=== PATIENT | female | born 1975 | race Caucasian/White ===

== ENCOUNTER 2016-12-17 15:11 | Day surgery (SDC) | payer MEDICARE, OTHER ==
--- NOTE | ~2016-12-17 | OP ---
Record Of Operation [facility] [address]. [address] NAME: FREDRICK HUFF : 75 STATUS : [facility]#: [id number] AGE: 41 ADM/REG DATE : 12/17/16 MR#: [id number] REPORT SERV DATE: 12/17/16 DICTATED BY: ELIAS BLACKWELL DATE: 12/17/16 REPORT STATUS : Draft TRANSCRIBED BY: MODL DATE: 12/17/16 DATE OF PROCEDURE: 12/17/2016 PREOPERATIVE DIAGNOSES: 1. Recurrent right renal calculus. 2. Urinary tract infection. POSTOPERATIVE DIAGNOSES: 1. Recurrent right renal calculus. 2. Urinary tract infection. PROCEDURE PERFORMED: Cystoscopy, right retrograde pyelogram, right ureteral stent placement. SURGEON: Elias Blackwell M.D. ANESTHESIA: General. ESTIMATED BLOOD LOSS: None. INDICATIONS: This is a 41-year-old white female with a history of a right staghorn stone who underwent a PCNL procedure about four or five months ago. She presented to the office today complaining of flank pain, nausea, vomiting, etc., and CT demonstrated significant regrowth of stone material in the right kidney and at least part of in a staghorn configuration. Also, her urine appears infected. We have initiated antibiotic treatment and are planning on ureteral stenting. Risks of infection, bleeding, failure, and need for further surgery for the stones have been discussed. PROCEDURE IN DETAIL: The patient was taken to the operating room and underwent a general anesthetic. She was placed in a lithotomy position on the table, and her external genitalia were sterilely prepped and draped. The 22-Kazakh cystoscope sheath with 30-degree lens was inserted under direct vision per urethra with the aid of the video monitor. There was a marked cystocele present. The bladder mucosa looked normal. Single orifices were seen bilaterally. There were no stones in the bladder. There were no mass lesions. There were no significant inflammatory changes. A right retrograde pyelogram was obtained showing a normal caliber ureter and perhaps a mildly dilated right collecting system if at all. It was difficult to see the known stone in her kidney. A 0.038 guidewire was advanced up into the kidney and a 6-Kazakh x 28 cm Contour stent was advanced over the guidewire such that the proximal end of the stent was observed to coil in the pelvis of the kidney under fluoroscopic guidance and the distal end of the stent was visually observed to coil in the bladder following removal of the guidewire. The bladder was then drained. All endoscopic apparatus was removed. The patient was taken to recovery in stable condition. [facility]ESHAWN/TAB Record Of [address] [place] [address] NAME: FREDRICK HUFF : 75 STATUS : [facility] PAT#: [id number] AGE: 41 ADM/REG DATE : 12/17/16 MR#: [id number] REPORT SERV DATE: 12/17/16 DICTATED BY: ELIAS BLACKWELL DATE: 12/17/16 REPORT STATUS : Draft TRANSCRIBED BY: TAB DATE: 12/17/16 Elias Blackwell M.D. / [id number] CC: Nayana Madison M.D.
[~2016-12-17 15:11] MED LIST: ABILIFY10 PO; BUSPAR10 PO; CIP5 PO; DETROL2 PO; DITRO5 PO; ENDOCET1 TA1 PO; ENDOCET1 TAB PO; PRILO PO; PYR200 PO; VIB50 PO
[2016-12-17 15:53] LABS: BASOPHILS 0.2 %; BASOPHILS ABSOLUTE 0.02 10/3/uL (0.0-0.16); EOSINOPHILS 1.6 %; EOSINOPHILS ABSOLUTE 0.15 10/3/uL (0.0-0.53); HEMATOCRIT 43.1 % (36.0-48.0); HEMOGLOBIN 15.2 g/dL (12.0-16.0); IMMATURE GRANULOCYTES 0.2 %; IMMATURE GRANULOCYTES ABSOLUTE 0.02 10/3/uL (0.0-0.11); LYMPHOCYTES 39.2 %; MANUAL DIFF NO %; MEAN CORPUS HGB CONC 35.3 g/dL (32.0-36.0); MEAN CORPUSCULAR HEMOGLOB 32.6 pg (26.0-34.0); MEAN CORPUSCULAR VOLUME 92.5 fL (80-100); MEAN PLATELET VOLUME 10.7 fL (9.2-13.0); MONOCYTES 7.2 %; MONOCYTES ABSOLUTE 0.68 10/3/uL (0.21-1.20); NEUTROPHILS 51.6 %; NEUTROPHILS ABSOLUTE 4.88 10/3/uL (2.02-8.40); PLATELET COUNT 262 10/3/uL (150-400); RBC DISTRIBUTION WIDTH 12.7 % (12.0-16.0); RED CELL COUNT 4.66 10/6/uL (4.0-5.6); WHITE BLOOD CELLS 9.5 10/3/uL (4.5-10.5)
[2016-12-17 16:04] LABS: BUN (BLOOD UREA NITROGEN) 15 MG/DL (6-23); CALCIUM, SERUM 9.5 MG/DL (8.5-10.4); CHLORIDE, SERUM 113 MMOL/L (96-112); CO2 (CARBON DIOXIDE) 24 MMOL/L (24-34); CREATININE 0.97 MG/DL (0.55-1.02); GFR AFRICAN AMERICAN 84 ML/MIN (>=60); GFR NON AFRICAN AMERICAN 73 ML/MIN (>=60); GLUCOSE, SERUM 121 MG/DL (60-99); SODIUM, SERUM 144 MMOL/L (135-148)
[2017-01-20] MEDS ORDERED: K250 PO (08:17)
[2017-01-20] MEDS ORDERED: ASABAYER PO (08:19)
[2017-01-20] MEDS ORDERED: PYR100B PO (08:35)
== END 2016-12-17 20:21 | disposition home or self-care (01) ==
LOC: SDC 15:11
PROVIDERS: Urology
PROC: 0T768DZ Dilation of Right Ureter with Intraluminal Device, Via Natural or Artificial Opening Endoscopic (ICD-10-PCS; principal; 2016-12-17 16:45)
DX: N20.0 Calculus of kidney (principal); N39.0 Urinary tract infection, site not specified; F41.9 Anxiety disorder, unspecified
CPT/HCPCS: 74420; 80048; 84703; 85025; A9270-GY; C1758; C2617; J1170; J2250; J2405; J3010; Q9967